=== PATIENT | male | born 1945 | race Caucasian/White ===

== ENCOUNTER 2022-02-04 05:33 | Day surgery (SDC) | payer MEDICARE, OTHER ==
[~2022-02-04 05:33] MED LIST: Sodium Chloride 0.9% 10 ML Syringe FLUSH SCH
[2022-02-04] MEDS ORDERED: Midazolam 1 MG/ML 2 ML SDV IV ONE ×5 (05:34→06:38)
[2022-02-04] MEDS ORDERED: fentaNYL 100 MCG/2 ML SDV IV ONE ×3 (05:34→06:30)
[2022-02-04] MEDS ORDERED: Midazolam 1 MG/ML 2 ML SDV ONE (05:59)
[2022-02-04] MEDS ORDERED: fentaNYL 100 MCG/2 ML SDV ONE (05:59)
[2022-02-04] MEDS ORDERED: Dextrose 5%-0.45% NaCl 1,000 ML IV SCH (06:00)
[2022-02-04] MEDS ORDERED: Sodium Chloride 0.9% 10 ML Syringe FLUSH PRN (06:00)
[2022-02-04 09:57] VITALS: BP 126/57; PULSE 47
== END 2022-02-04 08:57 | disposition home or self-care (01) ==
LOC: DL.ENDO 05:33
PROVIDERS: ATTEND Internal Medicine Gastroenterology
DX: Z12.11 Encounter for screening for malignant neoplasm of colon (principal); D12.0 Benign neoplasm of cecum; K64.8 Other hemorrhoids; E78.00 Pure hypercholesterolemia, unspecified; I10 Essential (primary) hypertension; E66.09 Other obesity due to excess calories; M45.9 Ankylosing spondylitis of unspecified sites in spine; Z98.890 Other specified postprocedural states; Z01.812 Encounter for preprocedural laboratory examination; Z20.822 Contact with and (suspected) exposure to COVID-19
CPT/HCPCS: J2250; J3010; J7042; U0002